=== PATIENT | female | born 1940 | race Caucasian/White ===

== ENCOUNTER 2016-06-14 13:45 | Emergency (ER) | payer MEDICARE, BC ==
[2013-01-30 18:25] VITALS: BMI 28.5
[~2016-06-14 13:45] MED LIST: ABILIFY2 MG PO; ANTIVERT25 MG PO; ATIVAN0.5 MG PO; CARAFATE1 G/10 ML PO; CELEXA20 MG PO; DUONEB 2.5-0.5 M3 ML UPD; DYAZIDE 37.5/251 CAP PO; K-TAB10 MEQ PO; LEVAQUIN250 MG PO; LIBRAX CAPSULE1 CAP PO; ONDANSETRON4 MG/2 M3 IV; PRAVACHOL80 MG PO; PROTONIX40 MG PO; SINEMET CR 51 TAB.S1 PO; TRANDATE300 MG PO; TYLENOL 325 MG325 MG GT; ULTRAM50 MG PO; ZYLOPRIM100 MG PO
[2016-06-14 15:03] LABS: BASOPHILS 0.6 % (0.0-2.0); HEMATOCRIT 31.5 % (36.0-48.0); HEMOGLOBIN 10.3 g/dL (12-16); IMMATURE GRANULOCYTES 0.2 % (0-5); LYMPHOCYTES 29.7 % (15-50); MCH 31.1 pg (26.0-34.0); MCHC 32.7 g/dL (31.0-37.0); MCV 95.2 fL (80.0-100.0); MEAN PLATELET VOLUME 9.6 fL (7.4-10.4); MONOCYTES 8.8 % (2-11); NEUTROPHILS 58.7 % (40-80); PLATELET COUNT 164 10x3/uL (130-400); RBC 3.31 10x6/uL (4.00-5.40); RDW 13.7 % (11.5-14.5)
[2016-06-14 15:22] LABS: ALKALINE PHOSPHATASE 87 U/L (46-116); ALT (SGPT) 11 U/L (10-68); BILIRUBIN - TOTAL 0.89 mg/dL (0.2-1.3); CALC OSMOLALITY 278 mosm/kg (275-300); CARBON DIOXIDE 27.1 mmol/L (21.0-32.0); CHLORIDE - SERUM 100 mmol/L (98-107); CREATININE - SERUM 1.8 mg/dL (0.6-1.3); GLUCOSE 91 mg/dL (74-106); POTASSIUM - SERUM 3.9 mmol/L (3.5-5.1); PROTEIN - SERUM 6.8 g/dL (6.4-8.2); SODIUM 138 mmol/L (136-145); UREA NITROGEN 22 mg/dL (7-18); eGFR NON AFRICAN AMERICAN 29 mL/min (90-120)
[2016-06-14 15:27] LABS: TROPONIN-I < 0.017 ng/mL (0.000-0.060)
[2016-06-14 15:59] LABS: AMYLASE - SERUM 65 U/L (25-115); LIPASE 125 U/L (73-393); PRO BNP 466 pg/mL (0-125)
== END 2016-06-14 17:36 | disposition home or self-care (01) ==
LOC: D.ER 13:45
PROVIDERS: Family Medicine
DX: R55 Syncope and collapse (principal); S06.0X0A Concussion without loss of consciousness, initial encounter; X58.XXXA Exposure to other specified factors, initial encounter; Y93.89 Activity, other specified; Y92.89 Other specified places as the place of occurrence of the external cause; Y99.0 Civilian activity done for income or pay; G20 Parkinson's disease; M10.9 Gout, unspecified; N19 Unspecified kidney failure

== ENCOUNTER 2016-09-06 06:33 | Emergency (ER) | payer MEDICARE, BC ==
[2013-01-30 18:25] VITALS: BMI 28.5
[2016-09-06 07:26] LABS: BASOPHILS 0.1 % (0-2); EOSINOPHILS 0.9 % (0-7); HEMATOCRIT 29.2 % (36.0-48.0); HEMOGLOBIN 9.8 g/dL (12-16); IMMATURE GRANULOCYTES 0.3 % (0-5); LYMPHOCYTES 10.4 % (15-50); MCH 31.5 pg (26.0-34.0); MCHC 33.6 g/dL (31.0-37.0); MCV 93.9 fL (80.0-100.0); MONOCYTES 9.3 % (2-11); PLATELET COUNT 156 10x3/uL (130-400); RBC 3.11 10x6/uL (4.00-5.40); RDW 13.6 % (11.5-14.5); WBC 8.7 10x3/uL (4.8-10.8)
[2016-09-06 07:56] LABS: ALBUMIN 3.7 g/dL (3.4-5.0); ANION GAP 11.9 mmol/L (8-16); BILIRUBIN - TOTAL 1.1 mg/dL (0.2-1.3); CALCIUM 9.1 mg/dL (8.5-10.1); CARBON DIOXIDE 27.1 mmol/L (21.0-32.0); CREATININE - SERUM 1.7 mg/dL (0.6-1.3); PROTEIN - SERUM 6.6 g/dL (6.4-8.2)
[2016-09-06 08:16] LABS: APPEARANCE CLEAR (CLEAR); COLOR YELLOW (YELLOW); SPECIFIC GRAVITY 1.005 (1.005-1.020)
[2016-09-06 08:17] LABS: GLUCOSE NEGATIVE (NEGATIVE); KETONE NEGATIVE (NEGATIVE); LEUKOCYTE ESTERASE 2+ (NEGATIVE); NITRITE NEGATIVE (NEGATIVE); PROTEIN NEGATIVE (NEGATIVE)
[2016-09-06 08:18] LABS: BILIRUBIN NEGATIVE (NEGATIVE)
[2016-09-06 08:25] LABS: BACTERIA FEW /hpf (NONE SEEN); EPITHELIAL CELLS 0-5 /hpf (0-5); RED CELLS - URINE 0-5 /hpf (0-5)
[2016-09-06 08:26] LABS: YEAST NONE SEEN /hpf (NONE SEEN)
[2016-09-06 08:27] LABS: GRANULAR CAST NONE SEEN /lpf (NONE SEEN); HYALINE CAST NONE SEEN /lpf (NONE SEEN); MUCUS NONE SEEN /lpf (NONE SEEN); RED CELL CAST NONE SEEN /lpf (NONE SEEN); SPERMATOZOA NONE SEEN /hpf (NONE SEEN)
[2016-09-06 08:28] LABS: AMORPHOUS SEDIMENT NONE SEEN /lpf (NONE SEEN); CALCIUM OXALATE CRYSTALS NONE SEEN /hpf (NONE SEEN); CHOLESTEROL CRYSTALS NONE SEEN /hpf (NONE SEEN); EPITHELIAL CELL CAST 0-5 /lpf (NONE SEEN); TALC POWDER CRYSTALS NONE SEEN /hpf (NONE SEEN); TRIPLE PHOSPHATE CRYSTALS NONE SEEN /hpf (NONE SEEN); URIC ACID CRYSTALS NSEEN /hpf (NONE SEEN); WAXY CAST NONE SEEN /lpf (NONE SEEN)
== END 2016-09-06 11:26 | disposition home or self-care (01) ==
LOC: D.ER 06:33
PROVIDERS: Emergency Medicine
DX: R10.9 Unspecified abdominal pain (principal); G20 Parkinson's disease; F17.200 Nicotine dependence, unspecified, uncomplicated

== ENCOUNTER 2018-05-03 11:50 | Inpatient (IN) | payer MEDICARE, BC ==
--- NOTE | 2018-05-03 13:30 | NUR ---
The patient arrives to [facility] with her son and [id number], she is ambulatory and uses a walker. She brought in her own, but did have the son take her walker home. The patient signs herself in voluntarily. Akosua Pinto from [facility] called about this patient and thought she would be appropriate for placement. Apparently the patient's spouse of 58 years is in the medical floor and she has been at home alone and since he has been gone she has been calling the police and stating that someone is breaking in and then she tells the police that if they come her will shoot them, but her is not at home. The patient has a life alert and she has pushed the button three times in the past 24 hours. On admission she tells me that someone broke into her house last night and drugged her dog, she also states that someone has tapped into her phones so that she is unable to make phone calls, but denies any command hallucinations. She has no history of dementia, but has a history of Parkinson's. She is pleasant and she is not agitated and she is agreeable to sign herself in. She does want to go upstairs and see her . The patient is falling asleep on the assessment. She does have some abrasions to the front of her bilateral shins and she has eczema on her left taoism. She has a small old scar from a gallbladder removal and a small old scar from a partial thyroidectomy. She does not wear dentures and she does not wear glasses. Her code word is Carolann, and she is a DNR per herself and her son. Did show she and her family her room and the day room, did provide the family a copy if the patient rights, the unit rules, phone call times, visitation days and times, and a list of items that a patient may have on the unit.
[2018-05-03 13:57] VITALS: BP 126/67; BMI 24.9
[2018-05-03] MEDS ORDERED: BENTYL10 MG PO (14:56)
[2018-05-03] MEDS ORDERED: KLONOPIN0.5 MG PO ×2 (14:57→14:58)
[2018-05-03] MEDS ORDERED: NORMODYNE / TR300 MG PO (14:57)
[2018-05-03] MEDS ORDERED: PRAVACHOL20 MG PO (15:00)
[2018-05-03] MEDS ORDERED: OMEPRAZOLE40 MG PO (15:01)
[2018-05-03] MEDS ORDERED: FERROUS SULFAT325 MG PO (15:04)
[2018-05-03] MEDS ORDERED: VITAMIN D250000 UNIT PO (15:06)
--- NOTE | 2018-05-03 21:02 | NUR ---
PATIENT IS AGITATED, EXTREMELY CONFUSED, CAN BE REDIRECTED AT TIMES, WALKS WIHT WALKER, COMPLIANT WITH MEDS. WILL FOLLOW POC
[2018-05-04 01:57] VITALS: BP 177/75
[2018-05-04 06:07] LABS: BASOPHILS 1.3 % (0-2); HEMOGLOBIN 10.7 g/dL (12-16); IMMATURE GRANULOCYTES 0.2 % (0-5); LYMPHOCYTES 39.3 % (15-50); MCH 32.2 pg (26.0-34.0); MCHC 33.4 g/dL (31.0-37.0); MCV 96.4 fL (80.0-100.0); MEAN PLATELET VOLUME 9.8 fL (7.4-10.4); MONOCYTES 12.8 % (2-11); NEUTROPHILS 43.4 % (40-80); PLATELET COUNT 160 10x3/uL (130-400); RBC 3.32 10x6/uL (4.00-5.40); WBC 4.6 10x3/uL (4.8-10.8)
[2018-05-04 06:38] LABS: ALBUMIN 3.7 g/dL (3.4-5.0); ANION GAP 15.3 mmol/L (8-16); BILIRUBIN - TOTAL 0.89 mg/dL (0.2-1.3); CALCIUM 9.1 mg/dL (8.5-10.1); CARBON DIOXIDE 25.2 mmol/L (21.0-32.0); CHOL - HDL RATIO 2.3 ratio (2.3-4.1); CREATININE - SERUM 1.4 mg/dL (0.6-1.3); LDL-HDL RATIO 1.2 ratio (1.5-3.5); POTASSIUM - SERUM 3.5 mmol/L (3.5-5.1); PROTEIN - SERUM 6.7 g/dL (6.4-8.2); THYROID STIMULATING HORMONE 1.61 uIU/mL (0.36-3.74)
--- NOTE | 2018-05-04 10:00 | NUR ---
RECEIVED PATIENT IN DINING ROOM FOR B'FAST, ALERT, CALM, CONFUSED, QUIET BUT SPEAKS WHEN SPOKEN TO. STATES,"I AM NOT CRAZY. THEY ARE JUST TRYING TO GET MY LAND AND HOUSE!" MEDS ADMIN PER ORDERS WITH COMPLETE MED COMPLIANCE NOTED. COOPERATIVE WITH GROUP AND STAFF REQUESTS. CONT POC INCLUDING MEDS AND GROUP THERAPY DIRECTED.
--- NOTE | 2018-05-04 16:13 | NUR ---
FAMILY HERE TO VISIT.
--- NOTE | 2018-05-04 18:07 | NUR ---
PATIENT WALKED TODAY WITH WALKER WITHOUT DIFFICULTY.
--- NOTE | 2018-05-04 21:25 | NUR ---
PATIENT IS CONFUSED, ABLE TO MAKE NEEDS KNOWN, COMPLIANT WITH MEDS, ABLE TO REDIRECT EASILY AT TIMES. WILL FOLLOW POC
[2018-05-04 22:53] VITALS: BP 118/46
--- NOTE | 2018-05-05 07:30 | NUR ---
PT IS CALM AT THIS TIME. PT IS VERY CONFUSED. PT WALKS WITH WALKER. COMPLIANT WITH MEDS. WILL CONTINUE CPOC.
[2018-05-05 08:00] VITALS: BP 150/90
[2018-05-05 09:22] VITALS: BMI 24.9
[2018-05-05 10:29] VITALS: Wt 52.3 kg
--- NOTE | 2018-05-05 15:29 | PSY ---
PATIENT NAME:SONNY MADSEN MEDICAL RECORD: [id number] : 42 LOCATION:[facility]9 ADMISSION DATE: 05/03/18 ACCOUNT: [id number] PSYCHIATRIC EVALUATION DATE OF EVALUATION: 05/04/18 PSYCHIATRIC EVALUATION IDENTIFYING DATA: The patient is 77 years old and she is admitted to the hospital on a voluntary basis. CHIEF COMPLAINT: Hallucinations. HISTORY OF PRESENT ILLNESS: The patient has a history of Parkinson's disease. She has been living at home with her , who is medically very compromised and now in the hospital, but cognitively he supposedly is perfectly fine and apparently he has been helping her keeping her focused and anchored. With him in the hospital, she has now completely decompensated. She has been calling the police, telling them that someone is breaking into her house and drugging her dog. She has been pushing her life alert button repeatedly. She thinks her phone is tapped and that is why she cannot make phone calls. She cannot say who is doing these things or why, but she is very distressed and upset about them. She also thinks there are people in her house and that they are doing something to her electricity. PAST MEDICAL HISTORY: Significant for Parkinson's disease. She has had a thyroidectomy in the past and has hypertension. PAST PSYCHIATRIC HISTORY: Significant for an established diagnosis of dementia. ALLERGIES: REGLAN AND IODINE. CURRENT MEDICATIONS: Pravachol, Zyloprim, Sinemet, Tylenol, Bentyl, Klonopin, Feosol, and vitamin D. FAMILY HISTORY: Negative for psychiatric disease by her account, which is unreliable. SOCIAL HISTORY: The patient is . She does have 3 adult children, who are involved with her care. She has no history of drug, alcohol, or tobacco use and apparently functioned reasonably well both socially and occupationally. MENTAL STATUS EXAMINATION: The patient is awake; alert; and oriented to person and place, but not to time or situation. Her mood is anxious. Her affect is constricted. Thought processes are circumstantial. Memory, concentration, and abstraction abilities are at least moderately impaired. She denies active intent to harm herself or others as well as overt psychotic symptoms. ASSESSMENT: AXIS I: Parkinson's related dementia. AXIS II: None. AXIS III: Hypertension, Parkinson's disease, chronic back pain, gout. AXIS IV: Severe. AXIS V: Global assessment of functioning is 25. PLAN: At this time, the patient is admitted to the hospital secondary to psychotic symptoms associated with dementing illness, probably mostly related to her Parkinson's disease. She will be comprehensively evaluated and treated with both memory enhancing and mood stabilizing medications. Her long-term prognosis is guarded. TRANSINT:[id number] Voice Confirmation ID: [id number] DOCUMENT ID: [id number] CHIRAG BIRD MD at 1529 CC: [id number] DICTATION DATE: 05/04/18 1205 MODEL MAKER PLASTER: 05/04/18 1221 ADM IN [place] [id number] [place] [id number]
[2018-05-05 15:39] LABS: APPEARANCE CLEAR (CLEAR); BILIRUBIN NEGATIVE (NEGATIVE); COLOR YELLOW (YELLOW); GLUCOSE NEGATIVE (NEGATIVE); KETONE SMALL mg/dL (NEGATIVE); NITRITE NEGATIVE (NEGATIVE); PROTEIN TRACE mg/dL (NEGATIVE); UROBILINOGEN NORMAL (NORMAL)
[2018-05-05 20:03] VITALS: BP 196/87
--- NOTE | 2018-05-05 21:16 | NUR ---
PATIENT IS CONFUSED BUT EASILY REDIRECTED, ABLE TO VOICE NEEDS, COMPLIANT WITH MEDS, NO ADVERSE REACTION NOTED. WILL FOLLOW POC
[2018-05-06 07:28] LABS: RAPID PLASMA REAGIN Non Reactive (Non Reactive)
--- NOTE | 2018-05-06 07:30 | NUR ---
REC'D PT IN HALLWAY SOCIALIZING WITH PEERS. CALM AND COOPERATIVE WITH ASSESSMENT. ALERT WITH CONFUSION NOTED. PRESCRIBED MEDS PROVIDED. MED COMPLIANT. REDIRECT AND REORIENT NEEDED. FALL PRECAUTIONS IN PLACE. WILL CONTINUE TO MONITOR Q 15 MINUTES FOR SAFETY. WILL CPOC.
[2018-05-06 08:00] VITALS: BP 143/88
[2018-05-06 10:20] LABS: FOLATE (FOLIC ACID) - SERUM >20.0 ng/mL (>3.0)
--- NOTE | 2018-05-06 22:58 | NUR ---
RECEIVED IN DAYROOM. RESTING IN RECLINER WITH EYES CLOSED. CALM AND COOPERATIVE [facility] AND ASSESSMENT. NO SIGNS OF HALLUCIANTIONS. REDIRECT AND REORIENT NEEDED. RESTING IN BED WITH EYES CLOSED AT THIS TIME. CONTINUE PLAN OF CARE.
[2018-05-06 23:36] VITALS: BP 182/90
[2018-05-07 07:50] VITALS: BP 135/70
--- NOTE | 2018-05-07 15:37 | PN ---
PATIENT:SONNY MADSEN MEDICAL RECORD: [id number] LOCATION:STEPHANIE [facility]leton112 ADMISSION DATE: 05/03/18 PROGRESS NOTE DATE OF SERVICE: 05/06/2018 SUBJECTIVE: The patient's case was discussed with staff. She has no new complaint. OBJECTIVE: The patient is in good behavioral control. She is tolerating her reduced dose of Sinemet well. She has had no further hallucinations. ASSESSMENT: No change in diagnoses. PLAN: Supportive and educational interventions were made. Long-term prognosis is guarded. TRANSINT:[id number] Voice Confirmation ID: [id number] DOCUMENT ID: [id number] CHIRAG BIRD MD at 1537 CC: [id number] DICTATION DATE: 05/06/18 1323 HARNESS PLACER: 05/06/18 1418 ADM IN [place] [id number] [place] [address]
--- NOTE | 2018-05-07 18:06 | NUR ---
REC'D PT IN HALLWAY WITH PEERS. AWAKE AND ALERT. CALM AND COOPERATIVE WITH ASSESSMENT. REDIRECT AND REORIENT NEEDED. PRESCRIBED MEDS PROVIDED. MED COMPLIANT. FALL PRECAUTIONS IN PLACE. WILL CONTINUE TO MONITOR Q 15 MINUTES FOR SAFETY. WILL CPOC.
--- NOTE | 2018-05-07 21:09 | NUR ---
RECEIVED IN PATIENT ROOM. SITTING ON SIDE OF BED. CALM AND COOPERATIVE WITH CARE AND ASSESSMENT. NO SIGNS OF HALLUCINATIONS. REDIRECT AND REORIENT NEEDED. RESTING IN BED WITH EYES CLOSED AT THIS TIME. CONTINUE PLAN OF CARE.
[2018-05-07 22:09] VITALS: BP 180/76
[2018-05-08 07:26] VITALS: BP 195/101
--- NOTE | 2018-05-08 10:14 | NUR ---
RECEIVED PATIENT IN DINING ROOM FOR B'FAST, ALERT, CALM, QUITE PLEASANT AND SMILING. MEDS ADMIN PER ORDERS WITH COMPLETE MED COMPLIANCE NOTED. COOPERATIVE WITH GROUP AND STAFF REQUESTS. CONT POC INCLUDING MEDS AND GROUP THERAPY DIRECTED.
--- NOTE | 2018-05-08 14:48 | PN ---
PATIENT:SONNY MADSEN MEDICAL RECORD: [id number] LOCATION:STEPHANIE Emi112 ADMISSION DATE: 05/03/18 PROGRESS NOTE DATE OF SERVICE: 05/07/2018 SUBJECTIVE: The patient's case was discussed with staff. She has no new complaint. OBJECTIVE: The patient is in good behavioral control with very limited insight about her condition. She does tolerate her medicines well. ASSESSMENT: No change in diagnoses. PLAN: Current medicines have been reviewed and will be maintained. Long-term prognosis is guarded. I am going to give her Aricept to assist with her cognitive impairment. TRANSINT:[id number] Voice Confirmation ID: [id number] DOCUMENT ID: [id number] CHIRAG BIRD MD at 1448 CC: [id number] DICTATION DATE: 05/07/18 1619 CARD DECORATOR: 05/08/18 0012 ADM IN [facility] [address] [place] [id number]
[2018-05-08 20:00] VITALS: BP 112/63
--- NOTE | 2018-05-09 04:49 | NUR ---
B) Patient is alert and oriented to person and place, calm and cooperative I) Administered scheduled medications as ordered, monitored for needs, R) Mediation compliant, pleasnat and friendly P) Continue plan of care.
[2018-05-09 08:10] VITALS: BP 111/67
--- NOTE | 2018-05-09 10:12 | NUR ---
RECEIVED PATIENT IN DINING ROOM FOR B'FAST. APPETITE GOOD, ALERT, CALM, PLEASANT MOOD, COOPERATIVE, CONFUSED. MEDS ADMIN PER ORDERS WITH COMPLETE MED COMPLIANCE NOTED. COOPERATIVE WITH GROUP AND STAFF. CONT POC INCLUDING MEDS AND GROUP THERAPY DIRECTED.
[2018-05-09 20:08] VITALS: BP 191/85
--- NOTE | 2018-05-10 02:14 | NUR ---
B) Patien tis alert and oriented to person and place, calm and cooperative, I) Administered scheduled medictions, monitored for safety R) Mediation compliant, pleasant and social with staff and peers, P) Continue plan of care.
[2018-05-10 08:01] VITALS: BP 119/61
--- NOTE | 2018-05-10 12:56 | PN ---
PATIENT:SONNY MADSEN MEDICAL RECORD: [id number] LOCATION:[facility]ANIE [facility]leton112 ADMISSION DATE: 05/03/18 PROGRESS NOTE DATE OF SERVICE: 05/09/2018 SUBJECTIVE: The patient's case was discussed with staff. She has no new complaint. OBJECTIVE: The patient is in good behavioral control with limited insight about her condition. She tolerates her medicines well. ASSESSMENT: No change in diagnoses. PLAN: Current medicines and therapies have been reviewed and will be maintained. Long-term prognosis is guarded. TRANSINT:[id number] Voice Confirmation ID: [id number] DOCUMENT ID: [id number] CHIRAG BIRD MD at 1256 CC: [id number] DICTATION DATE: 05/09/18 1649 LUMBER HACKER: 05/09/18 2325 ADM IN [place] [id number] [place] [address]
--- NOTE | 2018-05-10 12:56 | PN ---
PATIENT:SONNY MADSEN MEDICAL RECORD: [id number] LOCATION:[facility]leton112 ADMISSION DATE: 05/03/18 PROGRESS NOTE DATE OF SERVICE: 05/08/2018 SUBJECTIVE: The patient's case was discussed with staff. She has no new complaint. OBJECTIVE: The patient is in good behavioral control. She is severely impaired cognitively. She has not been aggressive, but that is most likely related to the close monitoring and quick intervention whenever she becomes a little confused or agitated. She is taking Aricept. I anticipate she can be transitioned to a shelter soon. TRANSINT:[id number] Voice Confirmation ID: [id number] DOCUMENT ID: [id number] CHIRAG BIRD MD at 1256 CC: [id number] DICTATION DATE: 05/08/18 1510 GUEST SERVICES ATTENDANT: 05/08/18 2118 ADM IN [place] [id number] [place] [id number]
--- NOTE | 2018-05-10 13:01 | NUR ---
B) The patient is awake and alert she has been calm and pleasant. She is watchful. She did get confused this am and asked me if she was leaving today. Stating that "I was told I was going to go see my today." Explained to her that it will be Saturday. She said "Oh, ok." She ambulates independently. I) Provide prescribed meds. R) The patient is compliant with meds. P) Continue POC.
--- NOTE | 2018-05-10 13:19 | NUR ---
The MHT took the patient's tray after she finished lunch and she began telling Nadya that she should be nicer to her, that she should give her more respect. The patient is talking about things that are not current at this time. The patient is having delusiopns or hallucinations. Did let Dr. Mcneill.
--- NOTE | 2018-05-10 15:00 | NUR ---
The patient is having hallucinations and delusions. She is anxious. I stood by her and asked if she would sit by me and she said "No, I will not, that man was sitting in all of these chairs and I heard the tell him that he has an infection and he needs to wear his gown and gloves and I don't think that we need to be around all of that." She pointed at three chairs and said "He's been sitting here and I don't want to sit here." Spoke to the patient and said "How about I disinfect these chairs and you can sit here." She said "Ok" then she said "I am tired of these girls calling my name when that other lady gets up and roams around. I don't want my ass beat for stuff she does and I am tired of hearing my name yelled out all the time." All of the above mentioned is not real. The other patient that is on isolation has not been sitting in any chair other than at the white table and she has a recliner to relax in. No one is calling her name when they intend to speak to another patient she is just seeing and hearing things that are not there.
--- NOTE | 2018-05-10 21:44 | NUR ---
PATIENT IS CONFUSED, HAVING SOME VISUAL HALLUCINATIONS, COMPLIANT WITH MEDS, WILL FOLLOW POC
[2018-05-11 04:45] VITALS: BP 150/72
--- NOTE | 2018-05-11 08:00 | NUR ---
REC'D PT IN HALLWAY WITH PEERS. ALERT WITH CONFUSION NOTED. CALM AND COOPERATIVE WITH ASSESSMENT. REDIRECT AND REORIENT NEEDED. PT IS HAVING SOME VISUAL HALLUCINATIONS. PRESCRIBED MEDS PROVIDED. MED COMPLIANT. FALL PRECAUTIONS IN PLACE. WILL CONTINUE TO MONITOR Q 15 MINUTES FOR SAFETY. WILL CPOC.
[2018-05-11 08:18] VITALS: BP 128/73
--- NOTE | 2018-05-11 12:21 | PN ---
PATIENT:SONNY MADSEN MEDICAL RECORD: [id number] LOCATION:[facility]PHAN[facility] Solano ADMISSION DATE: 05/03/18 PROGRESS NOTE DATE OF SERVICE: 05/10/2018 SUBJECTIVE: The patient's case was discussed with staff. She has no new complaint. OBJECTIVE: The patient is in good behavioral control, but has said some delusional things earlier today. She clearly has significant cognitive impairment and I would score her dementia in the severe range. I am seeing no evidence of Parkinson's disease that is objective. There are none of the objective symptoms that usually accompany the disease and I have reduced her Sinemet for a sufficient period of time that they should be seen. Based on this, I am going to take a conservative approach and rather than trying to treat her delusions with an antipsychotic medication, I am just going to stop her Sinemet. If Parkinson's like symptoms return, it can always be restarted, but I think this is preferable to trying to pile medications on top of each other that work against one another. TRANSINT:[id number] Voice Confirmation ID: [id number] DOCUMENT ID: [id number] CHIRAG BIRD MD at 1221 CC: [id number] DICTATION DATE: 05/10/18 1345 ASPHALT SPREADER OPERATOR: 05/10/18 1417 ADM IN [place] [address] [place] [address]
[2018-05-11] MEDS ORDERED: Aricept PO (13:09)
[2018-05-11] MEDS ORDERED: LISINOPRIL10 MG PO (13:10)
[2018-05-11] MEDS ORDERED: CELEXA20 MG PO (13:10)
[2018-05-11] MEDS ORDERED: LIDODERM 5 %1 PATCH TRANSDERM (13:11)
[2018-05-11] MEDS ORDERED: VOLTAREN75 MG PO (13:11)
[2018-05-11] MEDS ORDERED: PROTONIX40 MG PO (13:11)
[2018-05-11] MEDS ORDERED: VITAMIN D5000 UNIT PO (13:11)
[2018-05-11] MEDS ORDERED: VITAMIN B-121000 MCG PO (13:12)
[2018-05-11 21:16] VITALS: BP 140/70
--- NOTE | 2018-05-11 22:39 | NUR ---
PATIENT IS CONFUSED AND HAS BEEN EXPERIENCING VISUAL HALLUCINATIONS. SHE DOES BETTER WHEN SHE IS NOT ENGAGING WITH OTHERS BECAUSE SHE SEEMS TO "FEED" OFF OF OTHERS. COMPLIANT WITH MEDS, NO ADVERSE REACTION NOTED. WILL FOLLOW POC
[2018-05-12 08:00] VITALS: BP 131/69
--- NOTE | 2018-05-12 14:00 | NUR ---
DISCHARGE PAPERWORK COMPLETED, LEFT HOSPITAL VIA VEHICLE FROM [facility]. SHE IS CALM AND COOPERATIVE WITH STAFF. COMPLIANT WITH MEDICATIONS.
--- NOTE | 2018-05-12 16:05 | PN ---
PATIENT:SONNY MADSEN MEDICAL RECORD: [id number] LOCATION:[facility]leton112 ADMISSION DATE: 05/03/18 PROGRESS NOTE DATE OF SERVICE: 05/11/2018 SUBJECTIVE: The patient's case was discussed with staff. She has no new complaint. OBJECTIVE: The patient denies intent to harm herself or others. She tolerates her medicines well. She is severely impaired cognitively and denies any intent to harm herself or others. ASSESSMENT: No change in diagnoses. PLAN: I anticipate the patient can reasonably be transitioned out of the hospital soon. TRANSINT:[id number] Voice Confirmation ID: [id number] DOCUMENT ID: [id number] CHIRAG BIRD MD at 1605 CC: [id number] DICTATION DATE: 05/11/18 1240 MRB ENGINEER: 05/11/18 1247 ADM IN [place] [id number] [place] [address]
--- NOTE | 2018-05-13 15:21 | PN ---
PATIENT:SONNY MADSEN MEDICAL RECORD: [id number] LOCATION:STE[facility]ANIE Emi112 ADMISSION DATE: 05/03/18 PROGRESS NOTE DATE OF SERVICE: 05/12/2018 SUBJECTIVE: The patient's case was discussed with staff. She has no new complaint. OBJECTIVE: The patient denies intent to harm herself or others. She generally tolerates her medicines well. Eye contact is fair. ASSESSMENT: No change in diagnoses. PLAN: The patient is not showing any evidence of psychotic symptoms. She is eating and sleeping reasonably well. She has no significant agitation and will be maintained on current medicines, which have been reviewed. She will be transitioned out of the hospital to a setting where she can receive 94-weky-w-day supervision. TRANSINT:[id number] Voice Confirmation ID: [id number] DOCUMENT ID: [id number] CHIRAG BIRD MD at 1521 CC: [id number] DICTATION DATE: 05/12/18 1410 ACID TREATER: 05/12/18 1627 DIS IN 05/12/18 [place] [id number] [place] [address]
--- NOTE | 2018-05-15 14:00 | DS ---
PATIENT:SONNY MADSEN :42 MEDICAL RECORD: [id number] DISCHARGE SUMMARY ADMISSION DATE: 05/03/18 DISCHARGE DATE: 05/12/18 IDENTIFYING DATA: The patient is 77 years old and she was admitted to the hospital on a voluntary basis because of hallucinations. The patient has a history of Parkinson disease and has been at home with her , who is medically compromised. Apparently, he had to be hospitalized and she did not have adequate supervision, but when others were trying to help her to keep her focused and anchored, she became very aggressive and paranoid. She believed that someone was breaking into her house and drugging her dog. She was repeatedly pushing her life alert button even though there was not anything wrong or that needed to be attended to. She believed her phone line was tapped and she was unable to make phone calls. She could not say who was doing these things or why, but she was clearly very distressed. HOSPITAL COURSE: The patient was admitted to the hospital and fully evaluated from both a medical, psychological, and social standpoint. The patient was taking Sinemet for her Parkinson disease and this was subsequently titrated downward without any recurrence of her Parkinson's like syndrome symptoms. She was treated with antidepressant mood stabilizing medications as well as cognitive enhancing medications and did show a nice and robust response to the regimen. She was still having a significant amount of cognitive impairment as would be expected, but she had no paranoid or delusional thoughts and certainly was not aggressive. DISCHARGE DIAGNOSES: AXIS I: Parkinson-related dementia. AXIS II: None. AXIS III: Hypertension, Parkinson disease, chronic back pain, gout. AXIS IV: Severe. AXIS V: Global assessment of functioning is 35. PLAN: At the time of discharge, the patient was in good behavioral control and did not represent an acute risk to herself or others. She is to continue taking her current medications and to have follow up with her primary care outpatient physician. TRANSINT:[id number] Voice Confirmation ID: [id number] DOCUMENT ID: [id number] CHIRAG BIRD MD at 1400 CC: [id number] DICTATION DATE: 05/14/18 1605 SUPERVISOR COOPERAGE SHOP: 05/15/18 0316 DIS IN 05/12/18 [place] [id number] [place] [address]
== END 2018-05-12 14:00 | DRG 57 ==
LOC: D.PSYCH 11:50
PROVIDERS: ADMIT Psychiatry & Neurology Psychiatry
DX: G20 Parkinson's disease (principal); F02.81 Dementia in other diseases classified elsewhere, unspecified severity, with behavioral disturbance; N17.9 Acute kidney failure, unspecified; I10 Essential (primary) hypertension; M10.9 Gout, unspecified; M54.9 Dorsalgia, unspecified; G89.29 Other chronic pain; M19.90 Unspecified osteoarthritis, unspecified site; E78.5 Hyperlipidemia, unspecified; F41.8 Other specified anxiety disorders; D50.9 Iron deficiency anemia, unspecified; E55.9 Vitamin D deficiency, unspecified; K21.9 Gastro-esophageal reflux disease without esophagitis; G47.00 Insomnia, unspecified; G47.33 Obstructive sleep apnea (adult) (pediatric)